=== PATIENT | female | born 1995 | race African-American/Black ===

== ENCOUNTER 2021-06-06 17:32 | Emergency (ER) | payer MEDICAID, OTHER ==
[~2021-06-06] VITALS: Ht 177.8 cm; Wt 66.5 kg
[2021-06-06 18:14] VITALS: BP 117/70
--- NOTE | 2021-06-06 18:22 | NUR ---
LOBBY. PT GIVEN URINE CUP
--- NOTE | 2021-06-06 19:20 | NUR ---
GAVE REPORT TO SHANON STEVENS. TRANSFER OF CARE GIVEN
--- NOTE | 2021-06-06 19:20 | NUR ---
PT. IS A 25 Y/O FEMALE WHO CAME TO ED WITH C/O OF VAGINAL BLEEDING. PT. STATES BEFORE MAY 04 2021, SHE TOOK PLAN B. ON SUNDAY, PT. STATES "I THINK I MISCARRIED BECAUSE I WAS GUSHING BLOOD IN THE BATHROOM AFTER MY PARTNER AND I HAD INTERCOURSE." PT. STATES THAT SHE IS STILL SPOTTING NOW. PT. RATES 0/10 ON THE PAIN SCALE AT THIS TIME. DENIES N/V/D/FEVER/CHILLS. SKIN IS PINK/WARM/DRY; AAOX4 WITH EVEN AND STEADY GAIT; LUNGS CLEAR BL; HR EVEN AND REGULAR; PT DENIES ANY FEVER, CP, SOB, OR COUGH AT THIS TIME; VSS; PATIENT POSITIONED FOR COMFORT; HOB ELEVATED; BEDRAILS UP X2; BED DOWN. ER MD MADE AWARE OF PT STATUS. PMH: DENIES ALLERGIES: NKA
--- NOTE | 2021-06-06 19:28 | NUR ---
LUBNA HARMON AT BEDSIDE FOR MEDICAL EXAMINATION
--- NOTE | 2021-06-06 19:48 | NUR ---
ULTRASOUND AT BEDSIDE.
[2021-06-06 20:04] LABS: BASOPHILS % (AUTO) 0.3 % (0.0-2.0); EOSINOPHILS # (AUTO) 0.2 K/uL (0-0.4); EOSINOPHILS % (AUTO) 2.2 % (0.0-4.0); HEMATOCRIT 35.4 % (36-48); HEMOGLOBIN 12.1 g/dL (12.0-16.0); LYMPHOCYTES # (AUTO) 1.8 K/uL (2.5-16.5); LYMPHOCYTES % (AUTO) 22.9 % (20.5-51.1); MEAN CORPUSCULAR HEMOGLOBIN 34 pg (27-31); MEAN CORPUSCULAR HGB CONC 34 g/dL (33-37); MEAN CORPUSCULAR VOLUME 99.3 fL (80-94); MONOCYTES # (AUTO) 0.5 K/uL (0.8-1.0); MONOCYTES % (AUTO) 6.9 % (1.7-9.3); NEUTROPHILS # (AUTO) 5.3 K/uL (1.8-7.7); NEUTROPHILS % (AUTO) 67.7 % (42.2-75.2); PLATELET COUNT (AUTO) 222 K/uL (140-450); RED BLOOD CELL COUNT(AUTO) 3.56 MIL/uL (4.20-5.40); RED CELL DISTRIBUTION WIDTH 12.4 % (11.6-13.7); WHITE BLOOD COUNT (AUTO) 7.9 K/uL (4.8-10.8)
[2021-06-06 20:18] LABS: ALBUMIN 4.1 g/dL (3.4-5.0); ANION GAP 13.2 (8-16); CARBON DIOXIDE 25.6 mmol/L (21-32); CREATININE 0.6 mg/dL (0.6-1.3); POTASSIUM 3.8 mmol/L (3.5-5.1); TOTAL BILIRUBIN 0.5 mg/dL (0.0-1.0)
[2021-06-06 21:05] VITALS: BP 120/86
--- NOTE | 2021-06-06 21:05 | NUR ---
Patient discharged with v/s stable. Written and verbal after care instructions given and explained. Patient verbalized understanding. Ambulatory with steady gait. ID band removed. All questions addressed prior to discharge. Advised to follow up with PMD.
== END 2021-06-06 21:05 | disposition home or self-care (01) ==
LOC: MED 17:32
DX: O20.8 Other hemorrhage in early pregnancy (principal); Z3A.01 Less than 8 weeks gestation of pregnancy
CPT/HCPCS: 36415; 76801; 80053; 81002; 81025; 84702; 85025; 99284